=== PATIENT | female | born 1960 | race Caucasian/White ===

== ENCOUNTER 2023-02-16 09:00 | Inpatient (IN) ==
[2023-04-06] MEDS ORDERED: Lactated Ringers 1000 ml BAG 1,000 ML IV SCH (06:00)
[2023-04-06] MEDS ORDERED: Famotidine IV 10 MG/ML 2 ml VIAL (20 mg) IV ONE (06:00)
[2023-04-06] MEDS ORDERED: Buffered Lidocaine 1% SYRIN 1 ml INTRADERM ONE (06:00)
[2023-04-06] MEDS ORDERED: Tranexamic Acid 1 GM/100ML BAG 2,000 MG/200 ML BAG IV ONE (09:57)
[2023-04-06] MEDS ORDERED: Famotidine IV 10 MG/ML 2 ml VIAL (20 mg) ONE (09:57)
[2023-04-06] MEDS ORDERED: ceFAZolin 2 GM in NS PREMIX 2 GM/100 ML BAG IVPB ONE (09:57)
[2023-04-06] MEDS ORDERED: Lidocaine 2% PF 5 ML VIAL ONE (10:02)
[2023-04-06] MEDS ORDERED: Propofol 10 MG/ML 20 ML BTL ONE ×2 (10:02→15:39)
[2023-04-06] MEDS ORDERED: KETAMINE HCL 10 MG/ML 20 ml VIAL (200 MG) ONE (10:05)
[2023-04-06 10:32] LABS: Rapid COVID-19 Molecular Undetected (Undetected)
[2023-04-06] MEDS ORDERED: ROPIVACAINE 5 MG/ML 30 ML BTL (0.5%) ONE (12:26)
[2023-04-06] MEDS ORDERED: Midazolam 5 mg/5 ml VIAL 1 mg/ml 5 ml VIAL (5 mg) ONE (12:54)
[2023-04-06] MEDS ORDERED: Morphine 2 MG/ML SYRINGE IV PRN (13:24)
[2023-04-06] MEDS ORDERED: Ondansetron ODT 4 mg TAB 4 MG TAB PO PRN (13:24)
[2023-04-06] MEDS ORDERED: Ondansetron 4 mg VIAL 2 MG/ML 2 ml VIAL IV PRN ×2 (13:24→14:01)
[2023-04-06] MEDS ORDERED: Lactulose 30 ml UDC PO PRN (13:24)
[2023-04-06] MEDS ORDERED: Magnesium Hydroxide LIQ 30 ML UDC PO PRN (13:24)
[2023-04-06] MEDS ORDERED: Bupivacaine-MPF SPINAL 7.5 MG/ML - 2ML AMP ONE (13:47)
[2023-04-06] MEDS ORDERED: Sterile Water for Inj 10 ML ONE (13:48)
[2023-04-06] MEDS ORDERED: Naloxone 0.4 mg VIAL 0.4 mg/ml 1 ml VIAL IV PRN (14:01)
[2023-04-06] MEDS ORDERED: fentaNYL 100 mcg/2 ml 50 MCG/ML VIAL IV PRN (14:01)
[2023-04-06] MEDS ORDERED: Ondansetron 4 mg VIAL 2 MG/ML 2 ml VIAL ONE (14:22)
[2023-04-06] MEDS ORDERED: Glycopyrrolate IV 0.2 MG/ML 1 ML VIAL ONE (14:27)
[2023-04-06] MEDS ORDERED: fentaNYL 100 mcg/2 ml 50 MCG/ML VIAL ONE (14:54)
[2023-04-06] MEDS: Lactated Ringers 1000 ml BAG 1,000 ML IV SCH (18:54)
[2023-04-06] MEDS: Magnesium Hydroxide LIQ 30 ML UDC PO SCH (21:32)
[2023-04-06] MEDS: ceFAZolin 1 GM ADVAN 1 GM in NS 0.9% 50 ML 50 ML IVPB SCH (21:50)
[2023-04-07] MEDS: Lactated Ringers 1000 ml BAG 1,000 ML IV SCH ×2 (04:13→14:54)
[2023-04-07 06:16] LABS: Platelet Count 236 10^3/uL (150-450)
[2023-04-07] MEDS: ceFAZolin 1 GM ADVAN 1 GM in NS 0.9% 50 ML 50 ML IVPB SCH ×2 (06:16→14:16)
[2023-04-07 06:36] LABS: Calcium 8.8 mg/dL (8.6-10.3); Creatinine, Serum 0.67 mg/dL (0.51-0.95); Potassium 3.9 mmol/L (3.5-5.0); eGFR CKD-EPI 97.5 (>60)
[2023-04-07 07:05] LABS: Hematocrit 31.8 % (35-45); Mean Platelet Volume 8.6 fL (7.5-11.2)
[2023-04-07] MEDS ORDERED: Vitamin THERAPEUTIC TAB PO SCH (09:00)
[2023-04-07] MEDS ORDERED: Scopolamine 1 mg/72hr PATCH TRANSDERM PRN (09:03)
[2023-04-07] MEDS: Magnesium Hydroxide LIQ 30 ML UDC PO SCH (10:49)
[2023-04-07 17:15] VITALS: BP 127/55
== END 2023-04-07 18:10 | disposition home or self-care (01) | DRG 301 ==
LOC: AA 04-06 09:44 → SSU 04-06 13:24
PROVIDERS: ADMIT Orthopaedic Surgery Adult Reconstructive Orthopaedic Surgery; ATTEND Orthopaedic Surgery Adult Reconstructive Orthopaedic Surgery